=== PATIENT | female | born 1995 | race Caucasian/White ===

== ENCOUNTER 2018-01-05 12:01 | Inpatient (IN) | payer OTHER ==
[2018-01-05] MEDS ORDERED: Ondansetron HCl/PF 4 MG/2 ML Vial IVP PRN (12:36)
[2018-01-05] MEDS ORDERED: Lidocaine 1% (PF) 30 ML VIAL SC PRN (12:36)
[2018-01-05] MEDS ORDERED: LR / Pitocin 40 units/1000 ml 1,000 ML IV PRN (12:36)
[2018-01-05] MEDS ORDERED: Ibuprofen 800 MG TAB PO PRN (12:36)
[2018-01-05] MEDS ORDERED: Lactated Ringer's 1,000 ML IV SCH ×2 (12:45)
[2018-01-05 14:07] LABS: Hemoglobin 14.1 g/dL (12.0-16.0); Mean Corpuscular HGB CONC 33.7 g/dL (32.0-36.0); Mean Corpuscular Hemoglobin 31.8 pg (27.0-31.0); Mean Corpuscular Volume 94.2 fl (81.0-99.0); Mean Platelet Volume 7.5 fL (7.4-10.4); Platelet Count 230 thou/uL (130-400); RBC Distribution Width 12.2 % (11.5-14.5); Red Blood Cell (RBC) Count 4.44 mill/uL (4.20-5.40); White Blood Cell (WBC) Count 22.8 thou/uL (4.8-10.8)
[2018-01-05] MEDS ORDERED: LR / Pitocin 40 units/1000 ml 1,000 ML ONE (14:07)
[2018-01-05] MEDS ORDERED: Lidocaine 1% (PF) 30 ML VIAL ONE (14:19)
[2018-01-05 14:44] LABS: HBSAg Index 0.15 S/CO (0-0.99); Hep B Surf Ag Non-Reactive S/CO (NonReactive)
[2018-01-05 14:45] LABS: Syphilis Antibody Nonreactive (Nonreactive); Syphilis Antibody Index 0.03 S/CO (<1.00 Non-Reactive)
[2018-01-05 15:53] VITALS: BMI 24.1
--- NOTE | 2018-01-05 17:04 | PDOC.LDHP ---
Labor and Delivery H&P Chief complaint: contractions (started henry around 6am wthen her water broke, it was clear and infant was moving normally. At 10:30 her contractions were every 2-3 mins and lasting a minutes and they were instructed to come to L& D.) HPI: started henry around 6am when her water broke, it was clear and was moving normally. At 10:30 her contractions were every 2-3 mins and lasting a minutes and they were instructed to come to L&D. Current gestational age (weeks): 39 Due date: 01/13/18 Grav: 1 Para: 0 Current complications: none Abnormal US findings: No Current medications: pre-bob vitamins Previous surgical history: none Allergies/Adverse Reactions: Allergies Allergy/AdvReac Type Severity Reaction Status Date / Time amoxicillin Allergy Unknown Verified 01/05/18 15:55 Social history: none - Physical Exam Vital signs reviewed and normal: yes General: breathing through contractions Heart: RRR Lungs: CTAB Abdomen: gravid Extremeties: no edema FHT: category 1 (on admission) - Vaginal Exam cm dilated: 8 Effacement: 90% Station: 1+ - OB Labs Blood type: A RH: positive Antibody Screen: negative HIV: negative RPR: negative HEPSAg: negative 1 hour GCT: negative GBS: negative Urine drug screen: not done Rubella: immune - Assessment L&D Assessment: term patient in labor - Plan Plan: admit to L&D -: anticipate
[2018-01-05] MEDS ORDERED: Lanolin Ointment 7 GM TUBE TOP PRN (17:05)
[2018-01-05] MEDS ORDERED: diphenhydrAMINE 25 MG CAP PO PRN (17:05)
[2018-01-05] MEDS ORDERED: Milk Of Magnesia 30 ML UDCUP PO PRN (17:05)
[2018-01-05] MEDS ORDERED: Adacel (T-DAP) 0.5 ML VIAL IM ONE (17:05)
[2018-01-05] MEDS ORDERED: Benzocaine/Menthol 20-0.5% 60 ML CAN TOP PRN (17:05)
[2018-01-05] MEDS ORDERED: Methylergonovine 0.2 MG/ML VIAL IM PRN (17:05)
[2018-01-05] MEDS ORDERED: Bisacodyl 10 MG SUPP PR PRN (17:05)
[2018-01-05] MEDS ORDERED: Measles/Mumps/Rubella 10 MCG/0.5 ML VIAL SC ONE (17:05)
[2018-01-05] MEDS ORDERED: HYDROcodone/Acetaminophen 5/325 mg Tablet PO PRN ×2 (17:05)
[2018-01-05] MEDS ORDERED: Misoprostol 200 MCG TAB VAG PRN (17:05)
--- NOTE | 2018-01-05 17:05 | PDOC.OPDEL ---
OB Operative/Delivery Note Delivery Dr/Surgeon: Light Pre-Delivery Diagnosis: active labor Procedure/Post Delivery Dx: spontaneous vaginal delivery Weeks gestation: 39 Anesthesia: none - Findings A Sex: female Weight: 8 lb 6 oz - 1 min: 9 - 5 min: 9 - Additional Findings/Plan Placenta delivered: spontaneous Repaired Obstetrical Laceration: 1st degree (degree vaginal - reparied with 2.[address]) Estimated blood loss: 200 Compilations/Other Findings: 1st degree vaginal laceration repaired with 2.0 Vicryl Post delivery plan: routine recovery
[2018-01-05] MEDS ORDERED: LR / Pitocin 40 units/1000 ml 1,000 ML IV SCH (17:15)
[2018-01-05] MEDS: Ibuprofen 800 MG TAB PO SCH (23:57)
[2018-01-05] MEDS: Docusate Calcium (SURFAK) 240 MG CAP PO SCH (23:58)
[2018-01-06 05:39] LABS: Hemoglobin 12.1 g/dL (12.0-16.0); Mean Corpuscular HGB CONC 34.1 g/dL (32.0-36.0); Mean Corpuscular Hemoglobin 32.5 pg (27.0-31.0); Mean Corpuscular Volume 95.2 fl (81.0-99.0); Mean Platelet Volume 7.2 fL (7.4-10.4); Platelet Count 218 thou/uL (130-400); RBC Distribution Width 12.3 % (11.5-14.5); Red Blood Cell (RBC) Count 3.73 mill/uL (4.20-5.40); White Blood Cell (WBC) Count 21.3 thou/uL (4.8-10.8)
[2018-01-06] MEDS: Ibuprofen 800 MG TAB PO SCH ×2 (07:18→13:46)
[2018-01-06] MEDS ORDERED: Ferrous Sulfate 325 MG TAB PO SCH (08:00)
[2018-01-06] MEDS ORDERED: Prenatal Vitamin 1 TAB PO SCH (09:00)
[2018-01-06] MEDS: Docusate Calcium (SURFAK) 240 MG CAP PO SCH (09:23)
--- NOTE | 2018-01-06 10:27 | PDOC.PP ---
Post Progress Note Post Day #: 1 Subjective: doing well. pt is sore and tired and her nipple are very sore from nursing PO intake tolerated: yes Flatus: yes Ambulation: yes Vital Signs (12 hours) Temp Pulse Resp BP Pulse Ox 01/06/18 08:07 98.6 F 94 18 112/67 98 01/06/18 07:50 98.6 F 94 18 01/06/18 03:50 98.3 F 73 16 103/56 L 01/05/18 23:55 99.0 F 79 16 114/58 L Weight Weight 159 lb - Physical Examination General: NAD Cardiovascular: no m/r/g, RRR Respiratory: clear to auscultation bilaterally Abdominal: + bowel sounds Psychiatric: A&Ox3 Result Diagrams: 01/06/18 05:30 Additional Labs: Post Labs Blood Type A POSITIVE 01/05/18 13:30 Hep Bs Antigen Non-Reactive S/CO (NonReactive) 01/05/18 13:30 (1) 39 weeks gestation of Code(s): Z3A.39 - 39 WEEKS GESTATION OF Status: Acute (2) (spontaneous vaginal delivery) Code(s): O80 - ENCOUNTER FOR FULL-TERM UNCOMPLICATED DELIVERY Status: Acute (3) Primiparous Code(s): Z34.00 - ENCNTR FOR SUPRVSN OF NORMAL FIRST , UNSP TRIMESTER Status: Acute - Assessment/Plan A: NML exam on PPD#1 s/p P: discharge home today is infant is discharged. f/up with William Mooney for consultation. 6 weeks post visit.
[2018-01-06 11:40] VITALS: BP 123/70; TEMP 97.9
== END 2018-01-06 17:27 | disposition home or self-care (01) | DRG 775 ==
LOC: L&D/OP 12:01 → L&D-LIB 12:52 → 3SE 17:44
PROVIDERS: ADMIT Obstetrics & Gynecology; ATTEND Obstetrics & Gynecology
PROC: 10E0XZZ Delivery of Products of Conception, External Approach (ICD-10-PCS; principal; 2018-01-05)
PROC: 0HQ9XZZ Repair Perineum Skin, External Approach (ICD-10-PCS; 2018-01-05)
DX: O70.0 First degree perineal laceration during delivery (principal); Z37.0 Single live birth; Z3A.39 39 weeks gestation of pregnancy
CPT/HCPCS: 36415; 85027; 86780; 87340; 99285; J2001

== ENCOUNTER 2019-07-15 02:55 | Inpatient (IN) | payer BC ==
[2019-07-15] MEDS ORDERED: HYDROcodone/Acetaminophen 5/325 mg Tablet PO PRN ×4 (03:06→08:40)
[2019-07-15] MEDS ORDERED: Misoprostol 200 MCG TAB PR PRN (03:06)
[2019-07-15] MEDS ORDERED: Ondansetron PF 4 MG/2 ML Vial IVP PRN (03:06)
[2019-07-15] MEDS ORDERED: NS / Oxytocin 40 units/1000ml 1,000 ML IV PRN (03:06)
[2019-07-15] MEDS ORDERED: Ibuprofen 800 MG TAB PO PRN (03:06)
[2019-07-15] MEDS ORDERED: Lidocaine 1% (PF) 30 ML VIAL SC PRN (03:06)
[2019-07-15] MEDS ORDERED: Methylergonovine 0.2 MG/ML VIAL IM PRN ×2 (03:06→08:40)
[2019-07-15] MEDS ORDERED: Promethazine HCl 25 MG/ML VIAL IM PRN (03:06)
[2019-07-15] MEDS ORDERED: Lactated Ringer's 1,000 ML IV PRN (03:06)
[2019-07-15] MEDS ORDERED: hydrALAZINE 20 MG/ML VIAL SLOW IVP PRN ×2 (03:06→08:40)
--- NOTE | 2019-07-15 03:17 | PDOC.LDHP ---
Labor and Delivery H&P Chief complaint: contractions HPI: Patient was woken up by contraction at 0140. They were quickly getting stronger , so she headed to [facility]. She denies ROM & VB. Her baby is moving well. Current gestational age (weeks): 40 (and 1 day) Due date: 07/13/19 Dating criteria: last menstrual period Grav: 2 Para: 1 OB History Details: x1, no complications. 2018 Current complications: none Past Medical History: None Current medications: pre-bob vitamins Previous surgical history: other (wisdom tooth extraction) Allergies/Adverse Reactions: Allergies Allergy/AdvReac Type Severity Reaction Status Date / Time amoxicillin Allergy Unknown Verified 01/05/18 15:55 Social history: none - Physical Exam Vital signs reviewed and normal: yes General: breathing through contractions Lungs: nonlabored breathing Abdomen: gravid Extremeties: trace edema FHT: category 1 - Vaginal Exam cm dilated: 7 Effacement: 90% Station: -1 - OB Labs Blood type: A RH: positive Antibody Screen: negative HIV: negative RPR: negative HEPSAg: negative 1 hour GCT: negative GBS: negative Urine drug screen: negative Rubella: immune - Assessment L&D Assessment: term patient in labor - Plan Plan: admit to L&D -: Low intervention policy anticipate
[2019-07-15 03:27] VITALS: BMI 25.5
[2019-07-15 03:51] LABS: Hemoglobin 13.2 g/dL (12.0-16.0); Mean Corpuscular HGB CONC 34.4 g/dL (32.0-36.0); Mean Corpuscular Hemoglobin 31.6 pg (27.0-31.0); Mean Corpuscular Volume 91.7 fL (78.0-98.0); Platelet Count 210 thou/uL (130-400); RBC Distribution Width 12.2 % (11.5-14.5); Red Blood Cell (RBC) Count 4.17 mill/uL (4.20-5.40); White Blood Cell (WBC) Count 11.5 thou/uL (4.8-10.8)
[2019-07-15 04:31] LABS: Syphilis Antibody Nonreactive (Nonreactive); Syphilis Antibody Index 0.04 S/CO (<1.00 Non-Reactive)
[2019-07-15 04:32] LABS: HBSAg Index 0.12 S/CO (0-0.99); Hep B Surf Ag Non-Reactive S/CO (NonReactive)
[2019-07-15] MEDS ORDERED: Dextrose 5%-Lactated Ringers 1,000 ML IV SCH (06:15)
--- NOTE | 2019-07-15 08:07 | PDOC.OPDEL ---
OB Operative/Delivery Note Delivery Dr/Surgeon: William feng CNM Pre-Delivery Diagnosis: active labor Procedure/Post Delivery Dx: spontaneous vaginal delivery Weeks gestation: 40 Anesthesia: none - Findings A Sex: male Weight: 9 lb 1 oz - 1 min: 8 - 5 min: 9 - Additional Findings/Plan Placenta delivered: spontaneous Estimated blood loss: 450mL Compilations/Other Findings: EBL 425mL Post delivery plan: routine recovery
[2019-07-15] MEDS ORDERED: NS / Oxytocin 40 units/1000ml 1,000 ML IV SCH (08:40)
[2019-07-15] MEDS ORDERED: Benzocaine-Menthol 82.5 ML CAN TOP PRN (08:40)
[2019-07-15] MEDS ORDERED: Bisacodyl 10 MG SUPP PR PRN (08:40)
[2019-07-15] MEDS ORDERED: Misoprostol 200 MCG TAB VAG PRN (08:40)
[2019-07-15] MEDS ORDERED: Milk Of Magnesia 30 ML UDCUP PO PRN (08:40)
[2019-07-15] MEDS ORDERED: Adacel (T-DAP) 0.5 ML SYRINGE IM ONE (08:40)
[2019-07-15] MEDS: Docusate Calcium (SURFAK) 240 MG CAP PO SCH ×2 (11:04→21:43)
[2019-07-15] MEDS: Prenatal Vitamin 1 TAB PO SCH (11:04)
[2019-07-15] MEDS: Ibuprofen 800 MG TAB PO SCH (16:14)
[2019-07-15] MEDS: Ferrous Sulfate 325 MG TAB PO SCH (17:44)
[2019-07-16] MEDS: Ibuprofen 800 MG TAB PO SCH ×2 (02:45→06:20)
[2019-07-16 03:03] VITALS: BP 98/55; TEMP 97.9
[2019-07-16] MEDS: Ferrous Sulfate 325 MG TAB PO SCH (09:39)
[2019-07-16] MEDS: Docusate Calcium (SURFAK) 240 MG CAP PO SCH (09:40)
[2019-07-16] MEDS: Prenatal Vitamin 1 TAB PO SCH (09:40)
== END 2019-07-16 13:19 | disposition home or self-care (01) | DRG 807 ==
LOC: L&D/OP 02:55 → L&D-LIB 03:27 → 3SE 14:39
PROVIDERS: ADMIT Obstetrics & Gynecology; ATTEND Obstetrics & Gynecology
PROC: 10E0XZZ Delivery of Products of Conception, External Approach (ICD-10-PCS; principal; 2019-07-15)
DX: O70.0 First degree perineal laceration during delivery (principal); Z37.0 Single live birth; Z3A.40 40 weeks gestation of pregnancy
CPT/HCPCS: 36415; 85027; 86780; 86850; 86900; 86901; 87340; 99285; J2001